=== PATIENT | female | born 1980 | race Caucasian/White ===

== ENCOUNTER 2018-11-24 07:19 | Emergency (ER) | payer BC ==
[2018-11-24 07:25] VITALS: BP 128/76; PULSE 83; TEMP 98.2; BMI 24.8
--- NOTE | 2018-11-24 08:11 | PDOC ---
History of Present Illness - General Chief Complaint: Pain Stated Complaint: LEFT SIDE PAIN Time Seen by Provider: 11/24/18 07:53 History Source: Patient, Spouse Exam Limitations: No Limitations - History of Present Illness Initial Comments: 11/24/18 08:11 Fatmata Samaniego is a 38F with no PMH or PSH presenting with a mechanical fall onto her L side and L sided rib pain. Patient reports 4 days prior tripped over a tree stump and fell forwards onto her hands. Denies injury to her head or LOC, denies injury to her arms or legs. Was asymptomatic the next day, but yesterday has been having L-sided pain over her ribs with movement and is unable to sleep on that side. Past History - Past Medical History Allergies/Adverse Reactions: Allergies Allergy/AdvReac Type Severity Reaction Status Date / Time No Known Allergies Allergy Verified 11/24/18 07:25 Home Medications: Ambulatory Orders Ibuprofen [Motrin -] 600 mg PO TID PRN #90 tablet MDD 3 11/24/18 COPD: No - Psycho Social/Smoking Cessation Hx Smoking History: Never smoked Review of Systems - Review of Systems Constitutional: No: Symptoms Reported HEENTM: No: Symptoms Reported Respiratory: No: Symptoms reported Cardiac (ROS): Yes: Chest Pain ABD/GI: No: Symptoms Reported : No: Symptoms Reported Musculoskeletal: No: Symptoms Reported Integumentary: No: Symptoms Reported Neurological: No: Symptoms reported Endocrine: No: Symptoms Reported Hematologic/Lymphatic: No: Symptoms Reported All Other Systems: Reviewed and Negative *Physical Exam - Vital Signs Last Vital Signs Temp Pulse Resp BP Pulse Ox 98.2 F 83 18 128/76 99 11/24/18 07:21 11/24/18 07:21 11/24/18 07:21 11/24/18 07:21 11/24/18 07:21 - Physical Exam General Appearance: Yes: Nourished, Appropriately Dressed. No: Apparent Distress HEENT: positive: EOMI, TITA, Normal Voice, Pharynx Normal. negative: Scleral Icterus (R), Scleral Icterus (L), Muffled/Hoarse voice, Pharyngeal Erythema, Tonsillar Exudate, Tonsillar Erythema Neck: positive: Normal Thyroid, Supple. negative: Tender, Rigid, Decreased range of motion, Lymphadenopathy (R), Lymphadenopathy (L) Respiratory/Chest: positive: Chest Tender (tender to palpation L posterior rib margin, non-tender to R side), Lungs Clear, Normal Breath Sounds, Other (no pain elicited to deep inspiration). negative: Respiratory Distress, Accessory Muscle Use, Labored Respiration, Decreased Breath Sounds, Crackles, Rales, Rhonchi Cardiovascular: positive: Regular Rhythm, Regular Rate Gastrointestinal/Abdominal: positive: Normal Bowel Sounds, Flat, Soft. negative : Tender, Organomegaly, Distended Musculoskeletal: positive: Normal Inspection. negative: CVA Tenderness Extremity: positive: Normal Capillary Refill, Normal Inspection, Normal Range of Motion. negative: Tender Integumentary: positive: Normal Color, Dry, Warm Neurologic: positive: Fully Oriented, Alert, Normal Mood/Affect, Normal Response Medical Decision Making - Medical Decision Making 11/24/18 08:11 Fatmata Samaniego is a 38F with no PMH or PSH presenting with a mechanical fall onto her L side and L sided rib pain. Patient presentation is consistent with mechanical fall. On exam there is some concern for an acute fracture given L-sided tenderness, but no acute deformities or bruising notable. Most likely muscle strain. Will evaluate with CXR L rib series, Upreg to confirm not . 11/24/18 08:59 CXR shows no acute bony deformities. Patient is stable to go home with PMD f/u, NSAID/Tylenol, and rest precautions. Giving work note for pain today. Incentive spirometer obtained and given to patient, instructed on how to use and discharged home. Discharge - Discharge Information Problems reviewed: Yes Clinical Impression/Diagnosis: Rib pain on left side Condition: Stable Disposition: HOME - Admission No - Additional Discharge Information Prescriptions: Ibuprofen [Motrin -] 600 mg PO TID PRN #90 tablet MDD 3 PRN Reason: Pain - Follow up/Referral - Patient Discharge Instructions Additional Instructions: Today you were evaluated for pain on your side after a fall. X-ray of your left side does not show any evidence of a fracture. Your pain is likely related to muscle pain. At home and at work, please refrain from doing any heavy lifting or straining. Use ice packs to help relieve the pain, and you are free to use Tylenol or Motrin that can be bought at any drug store every 8 hours following the instructions on the label. Please practice deep breathing every 4 hours to prevent pneumonia. Please follow-up with your primary doctor in the next 3 days for further care. If you experience worsening pain, difficulty breathing, chest pain, belly pain, nausea, vomiting, or any other new or concerning symptoms, please return to the closest emergency room for care. - Post Discharge Activity Work/Back to School Note: Back to Work
--- NOTE | 2018-11-24 10:03 | PDOC ---
Attending Attestation - Resident Resident Name: Miguel Angel Walker - ED Attending Attestation I have performed the following: I have examined & evaluated the patient, The case was reviewed & discussed with the resident, I agree w/resident's findings & plan, Exceptions are as noted - HPI HPI: 11/24/18 09:56 38-year-old female here today status post a fall. Patient states she had a fall approximately 5 days ago was hiking suddenly tripped over a tree stump landing on her left side initially did not have much pain however in the days following she developed severe left-sided rib pain. 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 Denies any shortness of breath no fevers no chills did not hit her head no neck or back injury during her fall - Physicial Exam PE: 11/24/18 09:57 Awake alert no acute distress head is atraumatic there is no C-spine tenderness. Lungs are clear bilaterally. The left lateral rib along the axillary line there is a small area of yellowed ecchymosis. No palpable crepitus or step-off mild tenderness to palpation. Abdomen is soft and nontender there is no CVA tenderness extremities are warm well perfused relatively atraumatic. Neurologically she is awake alert x3 - Medical Decision Making 11/24/18 09:57 38-year-old female status post trip and fall complaining of persistent rib pain. Differential includes contusion versus fracture patient was screened for domestic violence denies any trauma or denies domestic violence in her home x- rays were negative for fracture was discharged home with instructions for deep breathing exercises and incentive spirometry. Warning instructions to return given prescription for Motrin for pain told to follow-up with the primary doctor she states she does not currently have one but will look for one this week
== END 2018-11-24 10:11 | disposition home or self-care (01) ==
LOC: JER 07:19
DX: S29.8XXA Other specified injuries of thorax, initial encounter (principal); R07.81 Pleurodynia; W01.0XXA Fall on same level from slipping, tripping and stumbling without subsequent striking against object, initial encounter; Y93.89 Activity, other specified; Y92.89 Other specified places as the place of occurrence of the external cause; Y99.8 Other external cause status
CPT/HCPCS: 71046-TC-FY; 71101-TC-LT-FY; 84703; 99283-25